=== PATIENT | male | born 1950 | race Caucasian/White ===

== ENCOUNTER 2017-07-27 08:00 | Outpatient (CLI) | payer MEDICARE, OTHER | END 2017-07-27 08:01 | disposition home or self-care (01) | LOC: LAB.WCP 08:00 | PROVIDERS: ATTEND Family Medicine | DX: Z00.00 Encounter for general adult medical examination without abnormal findings (principal) | CPT/HCPCS: 36415; 86787 ==

== ENCOUNTER 2017-10-25 07:21 | Outpatient (CLI) | payer MEDICARE, OTHER ==
[2017-10-25 13:01] LABS: BASOPHILS % (AUTO) 0.5 %; EOSINOPHILS # (AUTO) 0.1 10^3/uL (0.0-0.7); HGB - HEMOGLOBIN 16.6 g/dL (14.0-18.0); LYMPHOCYTES # (AUTO) 2.2 10^3/uL (1.5-3.5); LYMPHOCYTES % (AUTO) 41.6 %; MEAN CORPUSCULAR HEMOGLOBIN 31.7 pg (27.0-31.0); MEAN CORPUSCULAR HGB CONC 34.5 g/dL (32.0-36.0); MEAN PLATELET VOLUME 9.1 fL (7.4-11.4); MONOCYTES # (AUTO) 0.4 10^3/uL (0.0-1.0); NEUTROPHILS # (AUTO) 2.6 10^3/uL (1.5-6.6); NEUTROPHILS % (AUTO) 47.9 %; PLT - PLATELET COUNT 176 10^3/uL (130-450); RED BLOOD COUNT 5.24 10^6/uL (4.70-6.10); RED CELL DISTRIBUTION WIDTH 13.1 % (12.0-15.0); WHITE BLOOD COUNT 5.4 x10^3/uL (4.8-10.8)
[2017-10-25 13:15] LABS: HB2 TOTAL 17.9 g/dL; HEMOGLOBIN A1C 1.37 g/dL; HEMOGLOBIN A1C % 9.2 % (4.6-6.2)
[2017-10-25 13:21] LABS: ALBUMIN/GLOBULIN RATIO 1.3 (1.0-2.2); ALKALINE PHOSPHATASE 69 IU/L (42-121); ALT ALANINE AMINOTRANSFERASE 51 IU/L (10-60); AST ASPARTATE AMINOTRANSFERASE 35 IU/L (10-42); BILIRUBIN,TOTAL 0.8 mg/dL (0.2-1.0); BUN - BLOOD UREA NITROGEN 23 mg/dL (6-20); CALCIUM 9.2 mg/dL (8.5-10.3); CARBON DIOXIDE - CO2 23 mmol/L (21-32); CHLORIDE 105 mmol/L (101-111); CHOL/HDL RATIO 5.5 (<5.0); CHOLESTEROL 180 mg/dL; GFR - MDRD 75 (>89); GLUCOSE 241 mg/dL (70-100); HDL CHOLESTEROL 33 mg/dL; LDL CHOLESTEROL,CALCULATED 93 mg/dL; LDL/HDL RATIO 2.8 (<3.6); SODIUM 135 mmol/L (135-145); TOTAL PROTEIN 7.2 g/dL (6.7-8.2); VLDL CHOLESTEROL 54 mg/dL
== END 2017-10-25 07:22 | disposition home or self-care (01) ==
LOC: LAB.WCP 07:21
PROVIDERS: ATTEND Family Medicine
DX: E83.52 Hypercalcemia (principal); R73.9 Hyperglycemia, unspecified; I10 Essential (primary) hypertension; Z12.5 Encounter for screening for malignant neoplasm of prostate; E78.5 Hyperlipidemia, unspecified; K21.9 Gastro-esophageal reflux disease without esophagitis
CPT/HCPCS: 36415; 80053; 80061; 83036; 84443; 85025; G0103; 83721; 84153

== ENCOUNTER 2018-01-29 08:00 | Outpatient (CLI) | payer MEDICARE, OTHER ==
[2018-01-29 12:30] LABS: ALBUMIN 4.1 g/dL (3.2-5.5); ALBUMIN/GLOBULIN RATIO 1.4 (1.0-2.2); ALKALINE PHOSPHATASE 61 IU/L (42-121); ALT ALANINE AMINOTRANSFERASE 26 IU/L (10-60); AST ASPARTATE AMINOTRANSFERASE 22 IU/L (10-42); BILIRUBIN,TOTAL 0.7 mg/dL (0.2-1.0); BUN - BLOOD UREA NITROGEN 26 mg/dL (6-20); CALCIUM 8.7 mg/dL (8.5-10.3); CARBON DIOXIDE - CO2 24 mmol/L (21-32); CHLORIDE 105 mmol/L (101-111); CHOL/HDL RATIO 4.4 (<5.0); CHOLESTEROL 140 mg/dL; CREATININE 0.9 mg/dL (0.6-1.2); GFR - MDRD 85 (>89); GLUCOSE 118 mg/dL (70-100); HDL CHOLESTEROL 32 mg/dL; LDL CHOLESTEROL,CALCULATED 81 mg/dL; LDL/HDL RATIO 2.5 (<3.6); SODIUM 135 mmol/L (135-145); TOTAL PROTEIN 7.1 g/dL (6.7-8.2); VLDL CHOLESTEROL 27 mg/dL
[2018-01-29 12:33] LABS: HB2 TOTAL 18.1 g/dL; HEMOGLOBIN A1C 0.75 g/dL; HEMOGLOBIN A1C % 5.9 % (4.6-6.2)
== END 2018-01-29 08:01 | disposition home or self-care (01) ==
LOC: LAB.WCP 08:00
PROVIDERS: ATTEND Family Medicine
DX: E11.9 Type 2 diabetes mellitus without complications (principal); N21.0 Calculus in bladder; E21.3 Hyperparathyroidism, unspecified; E83.52 Hypercalcemia; I10 Essential (primary) hypertension; E78.5 Hyperlipidemia, unspecified
CPT/HCPCS: 36415; 80053; 80061; 83036; 83721

== ENCOUNTER 2018-05-17 07:21 | Outpatient (CLI) | payer MEDICARE, OTHER ==
[2018-05-17 13:10] LABS: CREATININE 0.9 mg/dL (0.6-1.2)
[2018-05-17 14:26] LABS: HB2 TOTAL 17.7 g/dL; HEMOGLOBIN A1C 0.71 g/dL; HEMOGLOBIN A1C % 5.8 % (4.6-6.2)
== END 2018-05-17 07:22 | disposition home or self-care (01) ==
LOC: LAB.WCP 07:21
PROVIDERS: ATTEND Family Medicine
DX: E11.9 Type 2 diabetes mellitus without complications (principal); E78.5 Hyperlipidemia, unspecified; E21.3 Hyperparathyroidism, unspecified; E83.52 Hypercalcemia; I10 Essential (primary) hypertension
CPT/HCPCS: 36415; 80048; 83036

== ENCOUNTER 2018-10-31 08:00 | Outpatient (CLI) | payer MEDICARE, OTHER ==
[2018-10-31 13:40] LABS: ALKALINE PHOSPHATASE 73 IU/L (42-121); ALT ALANINE AMINOTRANSFERASE 55 IU/L (10-60); AST ASPARTATE AMINOTRANSFERASE 33 IU/L (10-42); BILIRUBIN,TOTAL 0.9 mg/dL (0.2-1.0); CALCIUM 9.3 mg/dL (8.5-10.3); CARBON DIOXIDE - CO2 23 mmol/L (21-32); CHLORIDE 106 mmol/L (101-111); CHOLESTEROL 179 mg/dL; GLUCOSE 137 mg/dL (70-100); HDL CHOLESTEROL 36 mg/dL; SODIUM 140 mmol/L (135-145); TOTAL PROTEIN 7.7 g/dL (6.7-8.2)
[2018-10-31 14:09] LABS: ALBUMIN 4.6 g/dL (3.2-5.5); ALBUMIN/GLOBULIN RATIO 1.5 (1.0-2.2); BUN - BLOOD UREA NITROGEN 29 mg/dL (6-20); CREATININE 0.9 mg/dL (0.6-1.2); GFR - MDRD 84 (>89); LDL CHOLESTEROL,CALCULATED 111 mg/dL; LDL/HDL RATIO 3.1 (<3.6); VLDL CHOLESTEROL 32 mg/dL
[2018-10-31 14:54] LABS: HB2 TOTAL 19.8 g/dL; HEMOGLOBIN A1C 0.91 g/dL; HEMOGLOBIN A1C % 6.4 % (4.6-6.2)
== END 2018-10-31 23:59 ==
LOC: LAB.WCP 08:00
PROVIDERS: ATTEND Family Medicine
DX: B35.4 Tinea corporis (principal); E11.9 Type 2 diabetes mellitus without complications; I48.92 Unspecified atrial flutter
CPT/HCPCS: 36415; 80053; 80061; 82043; 83036; 83721; 84443

== ENCOUNTER 2019-04-08 14:32 | Outpatient (CLI) | payer MEDICARE, OTHER ==
--- NOTE | 2019-04-09 09:28 | XRAY Report ---
Reason: CRUSHING INJURY LEFT 5TH DIGIT Procedure Date: 04/08/2019 Accession Number: [id number] / [id number] Procedure: WCP - Finger(s) LT CPT Code: FULL RESULT: EXAM: LEFT FIFTH DIGIT RADIOGRAPHY EXAM DATE: 04/08/2019 02:51 PM. CLINICAL HISTORY: CRUSHING INJURY LEFT 5TH DIGIT. COMPARISON: None. TECHNIQUE: 3 views. FINDINGS: Bones: No acute fracture or bony lesion. Joints: Mild degenerative changes of the DIP and PIP joints of the left fifth digit. No dislocation. Soft Tissues: Soft tissue swelling. IMPRESSION: 1. No acute osseous abnormalities. [facility]
== END 2019-04-08 23:59 | disposition home or self-care (01) ==
LOC: DI.WCP 14:32
PROVIDERS: ATTEND Physician Assistant
DX: S67.191A Crushing injury of left index finger, initial encounter (principal)
CPT/HCPCS: 73140

== ENCOUNTER 2019-06-05 08:00 | Outpatient (CLI) | payer MEDICARE, OTHER ==
[2019-06-05 12:15] LABS: ALBUMIN 4.4 g/dL (3.2-5.5); ALBUMIN/GLOBULIN RATIO 1.7 (1.0-2.2); BILIRUBIN,TOTAL 0.8 mg/dL (0.2-1.0); CALCIUM 8.9 mg/dL (8.5-10.3); CREATININE 0.9 mg/dL (0.6-1.2)
[2019-06-05 12:28] LABS: BASOPHILS % (AUTO) 0.7 %; EOSINOPHILS # (AUTO) 0.5 10^3/uL (0.0-0.7); HGB - HEMOGLOBIN 16.2 g/dL (14.0-18.0); LYMPHOCYTES # (AUTO) 2.1 10^3/uL (1.5-3.5); LYMPHOCYTES % (AUTO) 37.8 %; MEAN CORPUSCULAR HEMOGLOBIN 30.6 pg (27.0-31.0); MEAN CORPUSCULAR HGB CONC 32.3 g/dL (32.0-36.0); MEAN CORPUSCULAR VOLUME 94.7 fL (80.0-94.0); MONOCYTES # (AUTO) 0.5 10^3/uL (0.0-1.0); MONOCYTES % (AUTO) 8.3 %; NEUTROPHILS # (AUTO) 2.5 10^3/uL (1.5-6.6); NEUTROPHILS % (AUTO) 44.8 %; PLT - PLATELET COUNT 174 10^3/uL (130-450); RED BLOOD COUNT 5.29 10^6/uL (4.70-6.10); RED CELL DISTRIBUTION WIDTH 13.2 % (12.0-15.0); WHITE BLOOD COUNT 5.7 x10^3/uL (4.8-10.8)
[2019-06-05 12:33] LABS: HB2 TOTAL 17.5 g/dL; HEMOGLOBIN A1C 0.7 g/dL; HEMOGLOBIN A1C % 5.8 % (4.6-6.2)
[2019-06-05 12:44] LABS: CREATININE,URINE 111.5 mg/dL; MICROALBUM/CREATININE RATIO,UR 9.9 ug/mg (<30.0); MICROALBUMIN,URINE 1.1 mg/dL (0-300.0)
== END 2019-06-05 23:59 | disposition home or self-care (01) ==
LOC: LAB.WCP 08:00
PROVIDERS: ATTEND Family Medicine
DX: N45.1 Epididymitis (principal); E11.9 Type 2 diabetes mellitus without complications; L03.116 Cellulitis of left lower limb; I71.9 Aortic aneurysm of unspecified site, without rupture
CPT/HCPCS: 36415; 80053; 82043; 82570; 83036; 84443; 85025

== ENCOUNTER 2023-02-16 08:00 | Outpatient (CLI) | payer MEDICARE, OTHER ==
--- NOTE | 2023-02-16 12:26 | XRAY Report ---
PROCEDURE: Lumbar Spine 2 View INDICATIONS: LUMBAR RADICULOPATHY TECHNIQUE: 2 views of the lumbar spine were acquired. COMPARISON: None. FINDINGS: Bones: 5 [id number] vertebrae are present. There is normal bony alignment. No vertebral body compression fractures. No suspicious bony lesions. Disc space narrowing and hypertrophic facet join ts noted particularly in the lower lumbar spine Soft tissues: Overlying bowel gas pattern is normal. No suspicious soft tissue calcifications. IMPRESSION: Disc space narrowing and arthropathy lower lumbar spine. No fracture or malalignment. Reviewed by: Jaswant Fernandez MD on 02/16/2023 11:25 AM POL[facility] Approved by: Jaswant Fernandez MD on 02/16/2023 11:25 AM POLINA Station ID: [id number]
== END 2023-02-16 23:59 | disposition home or self-care (01) ==
LOC: DI.S 08:00
PROVIDERS: ATTEND Emergency Medicine
DX: M47.816 Spondylosis without myelopathy or radiculopathy, lumbar region (principal)

== ENCOUNTER 2023-06-11 08:41 | Outpatient (CLI) | payer MEDICARE, OTHER | END 2023-06-11 08:42 | disposition EMS.NT | LOC: EMS 08:41 | DX: I10 Essential (primary) hypertension (principal) ==